=== PATIENT | male | born 2000 | race Caucasian/White ===

== ENCOUNTER 2023-01-05 21:58 | Emergency (ER) | payer SELFPAY ==
--- NOTE | 2023-01-05 11:10 | ECG_ITS ---
[facility] Test Date: 2023-01-05 Pat Name: WINNIE LUGO Department: Room: - Gender: Male Information Security Director: : 2000 Requested By: JOSEF GALE Order Number: [id number] Reading MD: JOSEF GALE Measurements Intervals [place] Rate: 65 P: 51 VT: 160 QRS: 87 QRSD: 100 T: 44 QT: 376 QTc: 388 Interpretive Statements 1100 Sinus rhythm 2420 RSR (QR) in lead V1/V2, consistent with right ventricular conduction delay 9130 borderline ECG No previous ECG available for comparison Electronically Signed On 01-06-2023 6:04:54 EDT by JOSEF GALE
[2023-01-05 22:04] VITALS: BP 159/91; PULSE 70; RESP 16; TEMP 36.7; O2SAT 98; BMI 29.5
--- NOTE | 2023-01-05 22:38 | ED.NAVMDI1 ---
HPI - Nausea/Vomiting/Diarrhea General Chief complaint: Nausea/Vomiting/Diarrhea Stated complaint: Nausea Vomiting Time Seen by Provider: 01/05/23 22:29 Source: patient Mode of arrival: walk-in Limitations: no limitations History of Present Illness HPI Narrative: This 22-year-old male is brought emergency department by his mother for evaluation of nausea, vomiting and diarrhea that started around 5 PM. He admits that he was drinking alcohol yesterday. He does work outside in the sun but was not working this weekend. He states that he tried to drink clear liquids and tried to have some chicken noodle soup but promptly vomited it up. He denies any hematemesis. He states that he has been having diarrhea associated with his episodes of vomiting and thinks he has vomited and had diarrhea approximately 6 times since 5 PM. He has epigastric and left upper quadrant abdominal pain. He denies any back pain. He denies any fever. He denies any sick contacts. He is not diabetic. He states that he has not urinated since yesterday and thinks he is dehydrated. He denies any dizziness or syncope. He has no chest pain or shortness of breath. MD elicited complaint: Reports nausea, vomiting, diarrhea and abdominal pain Onset (ago): hour(s) (5) Related Data Home Medications Medication Instructions Recorded Confirmed No Known Home Medications 01/05/23 01/05/23 Allergies Allergy/AdvReac Type Severity Reaction Status Date / Time No Known Drug Allergies Allergy Verified 01/05/23 22:12 Review of Systems ROS Status of ROS 10 or more systems reviewed and unremarkable except as noted in history and below [facility] Social History Smoking status: Current every day smoker Exam Narrative Exam Narrative: Nurses note and vital signs reviewed and patient is not hypoxic. Blood pressure is mildly elevated at 159/91 General: The patient appears well and in no apparent distress. Patient is resting comfortably on cart. No respiratory distress or active vomiting noted Skin: Warm, dry, no pallor noted. There is no rash noted. Multiple tattoos noted Head: Normocephalic, atraumatic Eye: Normal conjunctiva, no drainage, EOMI. PERRL Ears, Nose, Mouth, and Throat: oral mucosa is sticky. Nares patent. Cardiovascular: Regular Rate and Rhythm Respiratory: Patient is in no distress, no accessory muscle use, lungs are clear to auscultation, no wheezing, rales or rhonchi Back: non-tender, no CVA tenderness bilaterally to percussion. GI: Normal bowel sounds, Epigastric and left upper quadrant and left lower quadrant tenderness to deep palpation, no pulsatile masses appreciated, no right lower quadrant or right upper quadrant tenderness appreciated Musculoskeletal: The patient has no evidence of calf tenderness, no pitting edema, symmetrical pulses noted bilaterally Neurological: A&O x4, normal speech Psychiatric: Cooperative Constitutional Vital Signs, click to edit/add: Last Vital Signs Temp 98.1 F 01/05/23 22:04 Pulse 70 01/05/23 22:04 Resp 16 01/05/23 22:04 BP 159/91 H 01/05/23 22:04 Pulse Ox 98 01/05/23 22:04 O2 Del Method Room Air 01/05/23 22:04 Course Course Hospital Course: He is reevaluated after IV fluids, Toradol, Pepcid and Zofran. He is now urinating and drinking clear liquids. He states he is feeling much better. His labs are reviewed and are essentially normal. He will be given additional liter of normal saline with anticipation of being discharged home after the IV fluids. Vital Signs Vital signs: Vital Signs Temperature 98.1 F 01/05/23 22:04 Pulse Rate 70 01/05/23 22:04 Respiratory Rate 16 01/05/23 22:04 Blood Pressure 159/91 H 01/05/23 22:04 Pulse Oximetry 98 01/05/23 22:04 Oxygen Delivery Method Room Air 01/05/23 22:04 Temperature 98.1 F 01/05/23 22:04 Pulse Rate 70 01/05/23 22:04 Respiratory Rate 16 01/05/23 22:04 Blood Pressure 159/91 H 01/05/23 22:04 Pulse Oximetry 98 01/05/23 22:04 Oxygen Delivery Method Room Air 01/05/23 22:04 MDM - Nausea/Vomiting/Diarrhea MDM Narrative Medical decision making narrative: This 22-year-old male enters evaluation of 5-1/2 hours of nausea, vomiting and diarrhea. Symptoms started abruptly around 5 PM. He denies any sick contacts. He has epigastric and left upper quadrant abdominal pain and mild left lower quadrant abdominal pain. He denies any chest pain, fever, dizziness or syncope. He doesn't arrival was a sinus rhythm at 65 beats for minute with a normal axis and no acute changes. An IV was placed and he was given normal saline and Toradol, Zofran and Pepcid. Routine labs are reviewed. He has a normal white count and hemoglobin. Electrolytes LFTs and lipase are normal. Reevaluation he was feeling much better. He did have a mildly elevated lactic acid at 2.1. We will not repeat his lactic acid is likely related to his mild dehydration. He was re-medicated with 4mg IV zofran prior to removal of his IV. He will be discharged home with prescription for Zofran and Pepcid to use for the next several days. Differential Diagnosis Differential diagnosis: Likely food poisoning and gastroenteritis Lab Data Labs: Lab Results 01/05/23 Range/Units 22:15 WBC 5.2 (4.0-11.0) 10^3/uL RBC 5.02 (4.70-6.10) 10^6/uL Hgb 15.9 (14.0-18.0) g/dL Hct 45.2 (42.0-54.0) % MCV 90.0 (80.0-94.0) fL MCH 31.7 (25.9-34.0) pg MCHC 35.2 (29.9-35.2) g/dL RDW 12.2 (11.0-15.0) % Plt Count 242 (150-450) 10^3/uL MPV 9.9 (9.5-13.5) fL Neut % (Auto) 72.9 (43.0-75.0) % Lymph % (Auto) 19.0 L (20.5-60.0) % Norton % (Auto) 6.3 (1.7-12.0) % Eos % (Auto) 0.6 L (0.9-7.0) % Baso % (Auto) 0.6 (0.2-2.0) % Neut # (Auto) 3.8 (1.4-6.5) 10^3/uL Lymph # (Auto) 1.0 L (1.2-3.8) 10^3/uL Norton # (Auto) 0.3 (0.3-0.8) 10^3/uL Eos # (Auto) 0.0 (0.0-0.7) 10^3/uL Baso # (Auto) 0.0 (0.0-0.1) 10^3/uL Abs Immat Gran (auto) 0.03 (0.00-0.03) 10^3/uL Imm/Tot Granulo (auto) 0.6 H (0.0-0.5) % Sodium 141 (136-145) mmol/L Potassium 4.0 (3.5-5.1) mmol/L Chloride 106 (98-107) mmol/L Carbon Dioxide 28.1 (21.0-32.0) mmol/L Anion Gap 10.9 BUN 12.0 (7.0-18.0) mg/dL Creatinine 1.14 (0.70-1.30) mg/dL Est GFR ( Amer) >60 (>=60) Est GFR (Non-Af Amer) >60 (>=60) BUN/Creatinine Ratio 10.5 Glucose 119 H (74-106) mg/dL Lactate 2.1 H (0.4-2.0) mmol/L Calcium 8.8 (8.5-10.1) mg/dL Total Bilirubin 0.5 (0.2-1.0) mg/dL AST 34 (15-37) U/L ALT 71 H (16-63) U/L Alkaline Phosphatase 60 (46-116) U/L Total Protein 8.0 (6.4-8.2) g/dL Albumin 4.6 (3.4-5.0) g/dL Globulin 3.4 g/dL Albumin/Globulin Ratio 1.4 Lipase 43.0 L (73.0-393.0) U/L ECG Data Attestation: I personally reviewed and interpreted this ECG as follows: (Sinus rhythm at 65 beats for minute, normal axis, normal intervals, no acute ST segment elevation or T-wave inversion) Discharge Plan Discharge Chief Complaint: Nausea/Vomiting/Diarrhea Clinical Impression: Gastroenteritis Patient Disposition: Home, Self-Care Time of Disposition Decision: 00:54 Condition: Good Prescriptions / Home Meds: No Action No Known Home Medications Instructions: Dehydration (ED), Gastroenteritis (ED), Acute Nausea and Vomiting (ED) Stand Alone Forms: Portal Instructions Referrals: LISE MOREAU [Primary Care Provider] - 1 week
[2023-01-05 22:51] LABS: Basophils Percent Auto 0.6 % (0.2-2.0); Eosinophils Percent Auto 0.6 % (0.9-7.0); Hematocrit 45.2 % (42.0-54.0); Hemoglobin 15.9 g/dL (14.0-18.0); Immature Granulocytes Abs Auto 0.03 10^3/uL (0.00-0.03); Immature Granulocytes Pct Auto 0.6 % (0.0-0.5); Mean Corpuscular HGB Conc 35.2 g/dL (29.9-35.2); Mean Corpuscular Hemoglobin 31.7 pg (25.9-34.0); Mean Platelet Volume 9.9 fL (9.5-13.5); Monocytes Absolute Auto 0.3 10^3/uL (0.3-0.8); Monocytes Percent Auto 6.3 % (1.7-12.0); Neutrophils Absolute Auto 3.8 10^3/uL (1.4-6.5); Neutrophils Percent Auto 72.9 % (43.0-75.0); Platelet Count 242 10^3/uL (150-450); Red Blood Count 5.02 10^6/uL (4.70-6.10); Red Cell Distribution Width 12.2 % (11.0-15.0); White Blood Count 5.2 10^3/uL (4.0-11.0)
[2023-01-05 23:08] LABS: Alanine Aminotransferase 71 U/L (16-63); Albumin Globulin Ratio 1.4; Albumin Level 4.6 g/dL (3.4-5.0); Alkaline Phosphatase 60 U/L (46-116); Anion Gap 10.9; Aspartate Amino Transferase 34 U/L (15-37); BUN Creatinine Ratio 10.5; Bilirubin Total 0.5 mg/dL (0.2-1.0); Calcium 8.8 mg/dL (8.5-10.1); Carbon Dioxide 28.1 mmol/L (21.0-32.0); Chloride 106 mmol/L (98-107); Estimated GFR (African America >60 (>=60); Estimated GFR (Non-African Ame >60 (>=60); Globulin 3.4 g/dL; Glucose 119 mg/dL (74-106); Sodium 141 mmol/L (136-145)
[2023-01-05] MEDS: 0.9 % SODIUM CHLORIDE 1,000 ML 100 ML IV (23:08)
[2023-01-05] MEDS: FAMOTIDINE/PF 20 MG/2 ML VIAL IV (23:08)
[2023-01-05] MEDS: KETOROLAC TROMETHAMINE 30 MG/ML VIAL 15 MG IVP (23:08)
[2023-01-05] MEDS: ONDANSETRON PF 4 MG/2 ML VIAL IV (23:08)
[2023-01-05 23:11] LABS: Lactate/Lactic Acid 2.1 mmol/L (0.4-2.0)
[2023-01-06] MEDS: 0.9 % SODIUM CHLORIDE 1,000 ML 1000 ML IV (00:10)
[2023-01-06] MEDS: ONDANSETRON PF 4 MG/2 ML VIAL IV (01:10)
[2023-01-06 01:14] VITALS: BP 140/79; PULSE 58; RESP 16; O2SAT 100
== END 2023-01-06 01:20 | disposition home or self-care (01) ==
PROVIDERS: Emergency Provider Emergency Medicine; Family Provider Family Medicine; PCP Family Medicine
DX: K52.9 Noninfective gastroenteritis and colitis, unspecified (principal); F17.210 Nicotine dependence, cigarettes, uncomplicated
CPT/HCPCS: 36415; 80053; 83605; 83690; 85025; 93005; 96361; 96374; 96375; 96376; 99284